=== PATIENT | male | born 1985 | race African-American/Black ===

== ENCOUNTER 2024-02-24 08:14 | Emergency (ER) | payer OTHER ==
[2024-02-24 08:55] LABS: Absolute Eosinophils 0.3 K/uL (0-0.5); Absolute Lymphocytes (CBC) 2.4 K/uL (0.7-4.9); Absolute Monocytes 0.3 K/uL (0.1-1.3); Absolute Neutrophil 1.3 K/uL (1.8-8.0); Basophils % 0.8 % (0-1.3); Eosinophils % 6.7 % (0-4.4); Hematocrit 37.6 % (39.6-49.0); Hemoglobin 12.8 g/dL (13.6-17.9); Lymphocytes % 54.9 % (15.3-44.8); MCH 29.9 pg (27.0-35.0); MCHC 33.9 g/dL (32.0-36.0); MCV 88.2 fL (80-100); MPV 7.4 fL (7.6-11.3); Monocytes % 7.7 % (3.3-12.3); Neutrophils % 29.9 % (41.7-73.7); Nucleated Red Blood Cells % 0.1 % (0-0); Platelets 241 thou/uL (152-406); RBC Red Blood Cell Count 4.26 M/uL (4.33-5.43); Red Cell Distribution Width 13.3 % (12.1-15.2)
--- NOTE | 2024-02-24 08:56 | RAD REPORT ---
EXAM DESCRIPTION: RAD - Chest Single View - 02/24/2024 8:34 am CLINICAL HISTORY: syncope Chest pain. COMPARISON: No comparisons FINDINGS: Portable technique limits examination quality. The lungs are grossly clear. The heart is normal in size. No displaced fractures. IMPRESSION: No acute intrathoracic process suspected.
[2024-02-24 09:12] LABS: Anion Gap 5.6 mEq/L (5.0-15.0); Potassium 3.6 mEq/L (3.5-5.1)
[2024-02-24 09:44] LABS: Atypical Lymphocytes 1 %; Differential Total Cells Count 100; Eosinophils 5 % (0-3); Lymphocytes 56 % (15-42); Monocytes 7 % (0-10); Segmented Neutrophils 34 % (40-80)
[2024-02-24 09:45] LABS: Anisocytosis 1+; Blood Morphology Comment NOTED (NOT SEEN); Ovalocytes 1+; Platelet Estimate ADEQ
[2024-02-24 09:46] LABS: Barbiturates NEGATIVE (NEGATIVE); Benzodiazepines NEGATIVE (NEGATIVE); Cocaine NEGATIVE (NEGATIVE); METHAMPHETAM NEGATIVE (NEGATIVE); Methadone NEGATIVE (NEGATIVE); Opiates NEGATIVE (NEGATIVE); Phencyclidine NEGATIVE (NEGATIVE); THC Cannibis NEGATIVE (NEGATIVE)
--- NOTE | 2024-02-24 11:23 | EDPHYS ---
Physician Documentation [facility] Name: Lonnie Griffin Age: 38 yrs Sex: Male : 1985 Arrival Date: 02/24/2024 Time: 08:14 Bed 2 Private MD: ED Physician Regan May HPI: 02/23 10:22 This 38 yrs old Black Male presents to ER via EMS with complaints of Altered Mental ms3 Status. 10:22 38-year-old male with past medical history of asthma presents to the emergency ms3 department via [facility] from [facility] unit after being found unresponsive. EMS notes patient had altered mental status. EMS notes patient smokes something in detention, 4 mg of Narcan was given by the detention with mild improvement. EMS noted patient's blood pressure to be 1003 systolic, heart rate in the 40s, respiratory rate 16, 95% on room air. Patient denies pain, nausea, vomiting, fevers, chills. Historical: - Allergies: 08:23 No Known Allergies; aa5 - PMHx: 08:23 Asthma; aa5 - Immunization history:: Adult Immunizations unknown. - Infectious Disease History:: Denies. - Social history:: Smoking status: Patient reports the use of cigarette tobacco products. ROS: 10:22 Constitutional: Negative for fever, and chills. Neck: Negative for injury, pain, and ms3 swelling, Cardiovascular: Negative for chest pain, and palpitations. Respiratory: Negative for shortness of breath, cough, wheezing, and pleuritic chest pain, Abdomen/GI: Negative for abdominal pain, nausea, vomiting, diarrhea, and constipation, MS/Extremity: Negative for injury and deformity, Skin: Negative for injury, rash, and discoloration, 10:22 Neuro: Positive for loss of consciousness, Exam: 10:22 Constitutional: This is a well developed, well nourished patient who is awake, alert, ms3 and in no acute distress. Head/Face: Normocephalic, atraumatic. Neck: Trachea midline, no cervical lymphadenopathy. Supple, full range of motion without nuchal rigidity, or vertebral point tenderness. No Meningismus. Chest/axilla: Normal chest wall appearance and motion. Nontender with no deformity. Cardiovascular: Regular rate and rhythm with a normal S1 and S2. No gallops, murmurs, or rubs. Normal PMI, no JVD. No pulse deficits. Respiratory: Lungs have equal breath sounds bilaterally, clear to auscultation and percussion. No rales, rhonchi or wheezes noted. No increased work of breathing, no retractions or nasal flaring. Abdomen/GI: Soft, non-tender, with normal bowel sounds. No distension or tympany. No guarding or rebound. No evidence of tenderness throughout. Skin: Warm, dry with normal turgor. Normal color with no rashes, no lesions, and no evidence of cellulitis. MS/ Extremity: Pulses equal, no cyanosis. Neurovascular intact. Full, normal range of motion. Neuro: Awake and alert, GCS 15, oriented to person, place, time, and situation. Cranial nerves II-XII grossly intact. Motor strength 5/5 in all extremities. Sensory grossly intact. Cerebellar exam normal. Normal gait. 12:05 ECG was reviewed by the Attending Physician. ms3 Vital Signs: 08:14 BP 119 / 83; Pulse 50; Resp 15 S; Temp 97.8(TE); Pulse Ox 96% on R/A; aa5 08:30 BP 122 / 79; Pulse 62; Resp 18 S; Pulse Ox 100% on R/A; aa5 10:30 BP 126 / 95; Pulse 59; Resp 18 S; Pulse Ox 100% on R/A; aa5 11:30 BP 112 / 81; Pulse 52; Resp 14 S; Temp 97.6(TE); Pulse Ox 100% on R/A; aa5 MDM: 08:19 Patient medically screened. ms3 10:22 Differential Diagnosis: electrolyte abnormality, overdose. ms3 12:04 Data reviewed: vital signs, nurses notes, lab test result(s), EKG, radiologic studies, ms3 and as a result, I will discharge patient. Independent interpretation of the following test(s) in the Emergency Department EKG: See my EKG interpretation above. Historians other than the Patient: EMS: Judah Membreno. Counseling: I had a detailed discussion with the patient and/or guardian regarding the historical points, exam findings, and any diagnostic results supporting the discharge/admit diagnosis, lab results, radiology results, the need for outpatient follow up, to return to the emergency department if symptoms worsen or persist or if there are any questions or concerns that arise at home. Special discussion: I discussed with the patient/guardian in detail that at this point there is no indication for admission to the hospital. It is understood, however, that if the symptoms persist or worsen the patient needs to return immediately for re-evaluation. ED course: Discussed labs and imaging with patient. Patient to follow-up with [facility]. He understands agrees with plan. All questions were answered. Return precautions discussed include worsening symptoms, or any other concerns. On reevaluation patient symptoms improved, patient is alert and oriented x 4, no apparent distress, nontoxic-appearing, speaking full sentences. 02/23 08:20 Order name: UDS; Complete Time: 10:06 ms3 02/23 08:20 Order name: Basic Metabolic Panel; Complete Time: 10:06 ms3 02/23 08:20 Order name: CBC with Diff; Complete Time: 10:06 ms3 02/23 08:20 Order name: Troponin HS; Complete Time: 10:06 ms3 02/23 09:45 Order name: Manual Differential; Complete Time: 10:06 EDMS 02/23 10:22 Order name: Troponin High Sensitivity; Complete Time: 11:16 ms3 02/23 08:20 Order name: XRAY Chest (1 view); Complete Time: 10:06 ms3 02/23 08:20 Order name: EKG; Complete Time: 08:20 ms3 02/23 08:20 Order name: Cardiac monitoring; Complete Time: 08:27 ms3 02/23 08:20 Order name: EKG - Nurse/Tech; Complete Time: 08:40 ms3 02/23 08:20 Order name: IV Saline Lock; Complete Time: 08:27 ms3 02/23 08:20 Order name: Labs collected and sent; Complete Time: 08:40 ms3 02/23 08:20 Order name: O2 Per Protocol; Complete Time: 08:27 ms3 02/23 08:20 Order name: O2 Sat Monitoring; Complete Time: : ms3 EC:05 Rate is 53 beats/min. Rhythm is regular. QRS [place] is Normal. [place] interval is normal. QRS ms3 interval is normal. Clinical impression: Sinus bradycardia. Interpreted by me. Reviewed by me. Administered Medications: No medications were administered Disposition Summary: 02/24/24 11:22 Discharge Ordered Notes: Location: Home ms3 Condition: Stable ms3 Diagnosis - Anemia, unspecified ms3 - Altered mental status, unspecified ms3 Followup: ms3 - With: Private Physician - When: 1 - 2 days - Reason: Recheck today's complaints Discharge Instructions: - Discharge Summary Sheet ms3 - Anemia ms3 - Confusion ms3 Forms: - Medication Reconciliation Form ms3 - Antibiotic Education ms3 - Prescription Opioid Use ms3 - Patient Portal Instructions ms3 - Leadership Thank You Letter ms3 Signatures: Dispatcher [employer] Michaela Rothman RN RN aa5 Regan May DO DO ms3 Corrections: (The following items were deleted from the chart) 08:20 08:20 URINE DRUG SCREEN+UC.LAB.BRZ ordered. EDMS EDMS 08:20 08:20 BASIC METABOLIC PANEL+C.LAB.BRZ ordered. EDMS EDMS 08:20 08:20 CBC+H.LAB.BRZ ordered. EDMS EDMS 08:20 08:20 Troponin High Sensitivity+C.LAB.BRZ ordered. EDMS EDMS
--- NOTE | 2024-02-24 11:23 | ER ---
Nurse's Notes [facility] Name: Lonnie Griffin Age: 38 yrs Sex: Male : 1985 Arrival Date: 02/24/2024 Time: 08:14 Bed 2 Private MD: Diagnosis: Anemia, unspecified;Altered mental status, unspecified Presentation: 02/23 08:14 Chief complaint: EMS states: found in senior care cell unresponsive, yellow discoloration aa5 noted to thumbs by guards, senior care staff initiated 20 G to L AC, NS 1 L bolus, and administered Narcan with slight improvement prior to EMS arrival. EMS reports pt was awake and speaking upon their arrival, A\T\O x person, place, and time. 08:14 Onset of symptoms was February 24, 2024. aa5 08:14 Acuity: PAULY 2 aa5 08:14 Risk Assessment: Do you want to hurt yourself or someone else? Patient reports no aa5 desire to harm self or others. 08:14 Coronavirus screen: At this time, the client does not indicate any symptoms associated aa5 with coronavirus-19. Ebola Screen: Patient denies travel to an Ebola-affected area in the 21 days before illness onset. Initial Sepsis Screen: Does the patient meet any 2 criteria? No. Patient's initial sepsis screen is negative. Does the patient have a suspected source of infection? No. Patient's initial sepsis screen is negative. 08:14 Method Of Arrival: EMS: [facility] aa5 08:14 Transition of care: [facility]- [facility] unit. aa5 Historical: - Allergies: 08:23 No Known Allergies; aa5 - PMHx: 08:23 Asthma; aa5 - Immunization history:: Adult Immunizations unknown. - Infectious Disease History:: Denies. - Social history:: Smoking status: Patient reports the use of cigarette tobacco products. Screenin:30 [facility] ED Fall Risk Assessment (Adult) History of falling in the last 3 months, aa5 including since admission No falls in past 3 months (0 pts) Confusion or Disorientation No (0 pts) Intoxicated or Sedated No (0 pts) Impaired Gait No (0 pts) Mobility Assist Device Used No (0 pt) Altered Elimination No (0 pt) Score/Fall Risk Level 0 - 2 = Low Risk Oriented to surroundings, Maintained a safe environment, Educated pt \T\ family on fall prevention, incl call for assistance when getting out of bed. Abuse screen: Denies threats or abuse. Nutritional screening: No deficits noted. Tuberculosis screening: No symptoms or risk factors identified. Assessment: 08:14 General: Appears comfortable, Behavior is calm, cooperative. Pain: Denies pain. Neuro: aa5 Level of Consciousness is awake, alert, obeys commands, Oriented to person, place, time, situation, Beater And Pulper Feeder are equal bilaterally Moves all extremities. Speech is normal, Facial symmetry appears normal, Pupils are PERRLA. Cardiovascular: Heart tones S1 S2 present Rhythm is sinus bradycardia. Respiratory: Airway is patent Respiratory effort is even, unlabored, Respiratory pattern is regular, symmetrical. GI: No signs and/or symptoms were reported involving the gastrointestinal system. : No signs and/or symptoms were reported regarding the genitourinary system. EENT: No signs and/or symptoms were reported regarding the EENT system. Derm: Skin is dry, Skin is normal, Skin temperature is warm. Musculoskeletal: Restraints noted, handcuffs and feet shackles, by senior care guards. 09:00 Neuro: Level of Consciousness is awake, alert, obeys commands, Oriented to person, aa5 place, time, situation. Respiratory: Airway is patent Respiratory effort is even, unlabored, Respiratory pattern is regular, symmetrical. Derm: Skin is dry, Skin is normal, Skin temperature is warm. 11:40 Neuro: Level of Consciousness is awake, alert, obeys commands, Oriented to person, aa5 place, time, situation. Respiratory: Airway is patent Respiratory effort is even, unlabored, Respiratory pattern is regular, symmetrical. Derm: Skin is dry, Skin is normal, Skin temperature is warm. Vital Signs: 08:14 BP 119 / 83; Pulse 50; Resp 15 S; Temp 97.8(TE); Pulse Ox 96% on R/A; aa5 08:30 BP 122 / 79; Pulse 62; Resp 18 S; Pulse Ox 100% on R/A; aa5 10:30 BP 126 / 95; Pulse 59; Resp 18 S; Pulse Ox 100% on R/A; aa5 11:30 BP 112 / 81; Pulse 52; Resp 14 S; Temp 97.6(TE); Pulse Ox 100% on R/A; aa5 ED Course: 08:14 Patient arrived in ED. [id number] 08:14 Arm band placed on. aa5 08:14 Patient has correct armband on for positive identification. Bed in low position. Call aa5 light in reach. Side rails up X2. Jail guards at bedside. 08:15 Maintain EMS IV. Dressing intact. Good blood return noted. Site clean \T\ dry. Gauge \T\ aa 5 site: 20G to L AC . Flushed with 10 mL NS. 08:16 Regan May DO is Attending Physician. ms3 08:22 Michaela Villar, RN is Primary Nurse. aa5 08:26 Triage completed. aa5 08:36 XRAY Chest (1 view) In Process Unspecified. EDMS 08:38 Initial lab(s) drawn, by me, sent to lab. EKG done, by ED staff, reviewed by Regan May DO. 11:40 IV discontinued, intact, bleeding controlled, No redness/swelling at site. Pressure aa5 dressing applied. 11:40 No provider procedures requiring assistance completed. aa5 Administered Medications: No medications were administered Medication: 11:40 VIS not applicable for this client. aa5 Outcome: 11:22 Discharge ordered by . ms3 11:40 Discharged to [facility] unit, with senior care guards. aa5 11:40 Condition: stable 11:40 Instructed on discharge instructions, follow up and referral plans. Demonstrated understanding of instructions, follow-up care, 11:41 Patient left the ED. aa5 Signatures: Dispatcher [employer] EDNE Michaela Villar, RN RN Regan Mcleod DO DO ms3 Sarah Magallanes [id number]
[2024-02-24 11:52] VITALS: TEMP 97.8
[2024-02-24 11:53] VITALS: BP 122/79; O2SAT 100
== END 2024-02-24 11:41 | disposition home or self-care (01) ==
LOC: ER 08:14
DX: D64.9 Anemia, unspecified (principal); Z72.0 Tobacco use
CPT/HCPCS: 36415; 71045; 80048; 80307; 84484; 85025; 93005; 99284